=== PATIENT | male | born 1990 | race Caucasian/White ===

== ENCOUNTER → 2020-09-26 16:51 | Outpatient (CLI) | payer BC, SELFPAY ==
[2020-09-26 18:36] LABS: Basophils # 0.1 K/mm3 (0-0.2); Basophils % 0.9 % (0.1-2.0); Eosinophils # 0.2 K/mm3 (0.0-0.4); Eosinophils % 2.2 % (0.1-12.0); Hematocrit 49.4 % (42.0-52.0); Hemoglobin 15.7 g/dL (14.1-18.0); Lymphocytes % 40.7 % (10-50); Mean Corpuscular HGB Conc 31.8 g/dL (31.8-35.4); Mean Corpuscular Hemoglobin 27.5 pg (27.0-31.2); Mean Corpuscular Volume 86.4 fl (80-94); Monocytes # 0.6 K/mm3 (0.1-1.0); Monocytes % 8.2 % (1.7-9.3); Neutrophils # 3.5 K/mm3 (1.8-7.8); Neutrophils % 47.9 % (37.0-80.0); Platelet Count 321 K/mm3 (142-424); Red Blood Count 5.72 M/mm3 (4.60-6.20); Red Cell Distribution Width 12.6 % (11.5-17.5); White Blood Count 7.3 K/mm3 (4.8-10.8)
[2020-09-26 18:38] LABS: Alanine Aminotransferase 43 U/L (12-78); Albumin Level 4.7 g/dl (3.5-5.0); Albumin/Globulin Ratio 1.7 (1.1-1.8); Alkaline Phosphatase 72 U/L (38-126); Anion Gap 13.7 mEq/L (5-15); Aspartate Amino Transferase 32 U/L (17-59); Bilirubin,Total 0.5 mg/dl (0.2-1.3); Blood Urea Nitrogen 11 mg/dl (9-20); Calcium 9.9 mg/dl (8.4-10.2); Carbon Dioxide 27 mmol/L (22.0-30.0); Chloride 105 mmol/L (98-107); Chol/HDL Ratio 3.9 (1-3.5); Cholesterol 148 mg/dl (140-200); Estimated Glomerular Filt Rate 113 ml/min (>60); GFR (African American) 136 ML/MIN (>60); Globulin 2.8 g/dL (1.3-3.2); Glucose 97 mg/dl (74-100); HDL Cholesterol 38 mg/dl (40-60); Potassium 4.7 mmoL/L (3.5-5.1); Sodium 141 mmol/L (136-145); Total Protein,Serum 7.5 g/dl (6.3-8.2); Triglycerides 154 mg/dl (30-150); VLDL Cholesterol 31 mg/dL (0-40)
[2020-09-26 18:50] LABS: Direct LDL Cholesterol 87.83 mg/dL (100-129)
[2020-09-26 18:56] LABS: T4 (Thyroxine) 8.1 ug/dl (5.53-11.0)
[2020-09-26 19:10] LABS: Thyroid Stimulating Hormone 1.38 uIU/mL (0.465-4.68)
== END ==
PROVIDERS: Visit Provider Nurse Practitioner Family
DX: R53.83 Other fatigue (principal); G43.909 Migraine, unspecified, not intractable, without status migrainosus
CPT/HCPCS: 80053; 80061; 84436; 84443; 85025

== ENCOUNTER → 2021-02-17 15:18 | Outpatient (CLI) | payer BC, SELFPAY ==
--- NOTE | 2021-02-17 15:18 | CT_ITS ---
PROCEDURE INFORMATION: Exam: CT Maxillofacial Without Contrast, Sinus Exam date and time: 02/17/2021 3:18 PM Age: 30 years old Clinical indication: Face pain; Patient HX: Deviated nasal septum, polyp in right side of nose; Additional info: Deviated septum/right polyp TECHNIQUE: Imaging protocol: CT Maxillofacial without contrast. Focus on the sinuses. Radiation optimization: All CT scans at this facility use at least one of these dose optimization techniques: automated exposure control; mA and/or kV adjustment per patient size (includes targeted exams where dose is matched to clinical indication); or iterative reconstruction. COMPARISON: No relevant prior studies available. FINDINGS: Frontal sinuses: Normal. No air-fluid levels. Ethmoid air cells: Mild ethmoid sinusitis. Sphenoid sinuses: Normal. No air-fluid levels. Maxillary sinuses: Normal. No air-fluid levels. Ostiomeatal units are patent. Nasal cavity/Septum: Eukd-xm-hfzqo nasal septal deviation. 5 mm right nasal polyp present. Orbital cavity: Orbits are normal. Globes are unremarkable. Bones/joints: There is no evidence of acute fracture. Soft tissues: Unremarkable. IMPRESSION: 1. Mjuu-gg-gkabd nasal septal deviation. 2. 5 mm right nasal polyp present. 3. No evidence of acute fracture. 4. Mild ethmoid sinusitis.
== END ==
PROVIDERS: PCP Nurse Practitioner Family; Visit Provider Otolaryngology
DX: J34.2 Deviated nasal septum (principal); J33.9 Nasal polyp, unspecified
CPT/HCPCS: 70486

== ENCOUNTER → 2021-04-01 13:15 | Outpatient (CLI) | payer BC, SELFPAY ==
--- NOTE | 2021-04-01 13:50 | ECG_ITS ---
APPROVED REPORT Exam: Resting ECG HR:70 bpm ECG Measurements Heart Rate 70 AXES LA 186 P 91 QRSd 86 QRS 26 QT 398 T 21 QTc 429 Conclusion Undetermined rhythm Isolated Q in iii Abnormal ECG Electronically signed by : Zack Cuenca, 04/01/2021 16:47:17
[2021-04-01 13:51] LABS: Basophils # 0.1 K/mm3 (0-0.2); Basophils % 0.9 % (0.1-2.0); Eosinophils # 0.2 K/mm3 (0.0-0.4); Hematocrit 48.4 % (42.0-52.0); Hemoglobin 15.7 g/dL (14.1-18.0); Lymphocytes # 3.3 K/mm3 (0.7-4.5); Lymphocytes % 42.2 % (10-50); Mean Corpuscular HGB Conc 32.4 g/dL (31.8-35.4); Mean Corpuscular Hemoglobin 27.2 pg (27.0-31.2); Mean Corpuscular Volume 84.1 fl (80-94); Mean Platelet Volume 7.1 fl (7.4-10.4); Monocytes # 0.7 K/mm3 (0.1-1.0); Monocytes % 8.2 % (1.7-9.3); Neutrophils # 3.7 K/mm3 (1.8-7.8); Neutrophils % 46.7 % (37.0-80.0); Platelet Count 301 K/mm3 (142-424); Red Blood Count 5.75 M/mm3 (4.60-6.20); Red Cell Distribution Width 12.2 % (11.5-17.5); White Blood Count 7.9 K/mm3 (4.8-10.8)
[2021-04-01 14:29] LABS: Alanine Aminotransferase 44 U/L (12-78); Albumin Level 4.5 g/dl (3.5-5.0); Albumin/Globulin Ratio 1.7 (1.1-1.8); Alkaline Phosphatase 77 U/L (38-126); Anion Gap 15.4 mEq/L (5-15); Aspartate Amino Transferase 27 U/L (17-59); Bilirubin,Total 0.5 mg/dl (0.2-1.3); Blood Urea Nitrogen 13 mg/dl (9-20); Carbon Dioxide 22 mmol/L (22.0-30.0); Chloride 108 mmol/L (98-107); Estimated Glomerular Filt Rate 98 ml/min (>60); GFR (African American) 119 ML/MIN (>60); Globulin 2.7 g/dL (1.3-3.2); Glucose 90 mg/dl (74-100); Potassium 4.4 mmoL/L (3.5-5.1); Sodium 141 mmol/L (136-145); Total Protein,Serum 7.2 g/dl (6.3-8.2)
== END ==
PROVIDERS: Visit Provider Otolaryngology
DX: Z01.812 Encounter for preprocedural laboratory examination (principal); Z11.52 Encounter for screening for COVID-19; J34.2 Deviated nasal septum; J32.2 Chronic ethmoidal sinusitis
CPT/HCPCS: 36415; 80053; 85025; 93005; U0003

== ENCOUNTER 2021-04-03 07:17 | Day surgery (SDC) | payer BC, SELFPAY ==
[2021-04-01 14:08] VITALS: BMI 37.6
[2021-04-03] VITALS (10 sets, daily range): BP systolic 96–148; BP diastolic 56–91; PULSE 70–92; RESP 16–20; TEMP 36.1–36.6; O2SAT 92–99
--- NOTE | 2021-04-03 09:26 | P.PN_ITS ---
[facility] Anesthesia Checklist - Patient Identification Patient Identification: Arm Band - Structural Data Admitted From: Home Planned Operative Procedure/s: Nasal Septoplasty with Removal of Nasal Polyp Consent for Planned Operative Procedure(s) Verified: Yes Verified Documents: Surgical Consent, History and Physical - NPO Status Verified Time NPO: 00:00 - Additional verifications Anesthesia Reactions: No Hx Blood Transfusions: No Blood Transfusion Reaction: No - Airway Assessment C-Spine Mobility Assessed: Yes (mp2) TMJ Mobility Assessed: Yes Dentition: Good Dentition - Neurological Assessment Level of Consciousness: Awake, Alert - Anesthesia Plan Anesthesia Risk discussed: Yes Anesthesia Plan: Verified ASA Class: II Anesthesia Type: General [facility] History I have reviewed the patient's past medical history: Yes Medical History: Reports:: Migraine Denies:: Cancer, Diabetes Mellitus Type 1, Diabetes Mellitus Type 2, Internal Pacemaker, MRSA, Seizures *Have you ever received a pneumonia vaccine?: No *Have you received a flu vaccine this season?: No Other Medical History: Denies: Blood Transfusion Reaction Anesthesia experience/problems:: nac Laterality Cases: Bilateral: Tonsillectomy Other Surgeries: No: Pacemaker Amputation: No Fractures: No - *Social History Last grade of school completed: High school graduate Smoking Status: Never smoker Alcohol Intake: never Substance Use Type: denies use *Occupational Status:: employed Housing: house Household Members: family *Travel in the last 8 weeks: None Family Hx:: No significant family history
--- NOTE | 2021-04-03 10:16 | P.PN_ITS ---
[facility] Anesthesia Record Part I Intake, IV Amount: 1,000 Estimated blood loss (mL): 10 Urine output (mL): 0 Blood Pressure: 138/84 SaO2: 92 Pulse Rate: 88 Respiratory Rate: 16 Temperature: 97 F Patient is:: Drowsy, Stable Stable to PACU at:: 10:15
--- NOTE | 2021-04-03 10:43 | HMH.OPNOTE ---
Date of procedure: 04/03/21 Pre-op Diagnosis:: 1. Deviated nasal septum with 90% nasal airflow blockage 2. Right nasal vestibule polyp 3. Allergic rhinitis with hypertrophied inferior turbinates Post-op Diagnosis:: Same Procedure performed:: 1. Nasal septoplasty 2. Removal of right nasal vestibule polyp 3. Submucous inferior turbinectomies Surgeon:: Viktor Herrera MD [employer] OPERATOR:: Dhaval Garcia Anesthesia: GETA Estimated blood loss (mL): 10 Operative findings:: same Operative note:: With the patient under general anesthesia having been given clindamycin and Decadron, the face was prepped and draped. The eyes were protected with Steri-Strips. The nose was decongested with topical cocaine and 3 cc of 2% lidocaine with epi were injected into the nasal septum and the nasal antral arita. A left hemitransfixion incision was made, and the mucoperichondrium and mucoperiosteum was elevated from both sides of the nasal septum there was a spur of the nasal septum inferiorly to the left and also the quadrangular cartilage was bent to the left anteriorly and to the right posteriorly the quadrangular cartilage was trimmed inferiorly and posteriorly and straightened. The nasal spur was removed in entirety and when that was done the septum could be realigned in the midline and it was held there with transfixion and hemitransfixion chromic sutures after Surgicel snow was placed between the flaps, and all of the bleeding was stopped. The right nasal vestibule polyp was removed with the cup forceps and submitted. Both inferior turbinates were reduced in size by 50%. Bleeding for all the procedure was 10 cc and completely stopped. Bacitracin ointment was placed in the nasal vestibules and a drip pad dressing was applied, the patient was sent to recovery in good general condition. Condition: stable Disposition: PACU Complications:: none
--- NOTE | 2021-04-03 11:04 | HMH.ANESII ---
[facility] Anesthesia Record Part II Discharge Time: 10:44 Destination: Surgical Day Care (OP Surgery) PACU nurse assessment reviewed?: Yes Patient Condition:: Good Anesthesia Complications:: None Swallowing reflex intact?: Yes Cyanosis?: No Blood Pressure: 134/82 Pulse Rate: 82 Temperature: 97.5 F Mental Status: Alert & Oriented Pain level:: 0 Nausea and/or vomitting:: None Intake, IV Amount: 0
== END 2021-04-03 11:00 | disposition home or self-care (01) ==
LOC: OR 07:19
PROVIDERS: PCP Nurse Practitioner Family; Visit Provider Otolaryngology
PROC: (CPT 30520; principal; 2021-04-03 08:45)
DX: J34.2 Deviated nasal septum (principal); J33.8 Other polyp of sinus; G43.909 Migraine, unspecified, not intractable, without status migrainosus
CPT/HCPCS: 30520; 30140; 96374; 96375; J2405; J2710

== ENCOUNTER → 2021-08-19 10:55 | Outpatient (CLI) | payer BC, SELFPAY ==
[2021-08-19 19:37] LABS: Basophils # 0.1 K/mm3 (0-0.2); Basophils % 0.9 % (0.1-2.0); Eosinophils # 0.1 K/mm3 (0.0-0.4); Hematocrit 49.3 % (42.0-52.0); Hemoglobin 16.7 g/dL (14.1-18.0); Lymphocytes % 42.7 % (10-50); Mean Corpuscular HGB Conc 33.8 g/dL (31.8-35.4); Mean Corpuscular Hemoglobin 28.5 pg (27.0-31.2); Mean Corpuscular Volume 84.3 fl (80-94); Mean Platelet Volume 8.6 fl (7.4-10.4); Monocytes # 0.6 K/mm3 (0.1-1.0); Monocytes % 8.6 % (1.7-9.3); Neutrophils # 3.3 K/mm3 (1.8-7.8); Neutrophils % 45.8 % (37.0-80.0); Platelet Count 361 K/mm3 (142-424); Red Blood Count 5.85 M/mm3 (4.60-6.20); Red Cell Distribution Width 13.3 % (11.5-17.5); White Blood Count 7.1 K/mm3 (4.8-10.8)
[2021-08-19 19:38] LABS: Chloride 107 mmol/L (98-107)
[2021-08-19 19:39] LABS: Potassium 4.4 mmoL/L (3.5-5.1); Sodium 140 mmol/L (136-145)
[2021-08-19 19:41] LABS: Alanine Aminotransferase 43 U/L (12-78); Alkaline Phosphatase 75 U/L (38-126); Anion Gap 15.4 mEq/L (5-15); Aspartate Amino Transferase 33 U/L (17-59); Bilirubin,Total 0.3 mg/dl (0.2-1.3); Blood Urea Nitrogen 10 mg/dl (9-20); Carbon Dioxide 22 mmol/L (22.0-30.0); Cholesterol 135 mg/dl (140-200); Estimated Glomerular Filt Rate 98 ml/min (>60); GFR (African American) 118 ML/MIN (>60); Triglycerides 156 mg/dl (30-150); VLDL Cholesterol 31 mg/dL (0-40)
[2021-08-19 19:42] LABS: Albumin Level 4.5 g/dl (3.5-5.0); Albumin/Globulin Ratio 1.7 (1.1-1.8); Calcium 9.1 mg/dl (8.4-10.2); Globulin 2.6 g/dL (1.3-3.2); Glucose 94 mg/dl (74-100); HDL Cholesterol 34 mg/dl (40-60); Total Protein,Serum 7.1 g/dl (6.3-8.2)
[2021-08-19 19:53] LABS: Direct LDL Cholesterol 86.62 mg/dL (100-129)
[2021-08-19 20:11] LABS: T4 (Thyroxine) 7.9 ug/dl (5.53-11.0)
[2021-08-19 20:25] LABS: Thyroid Stimulating Hormone 1.52 uIU/mL (0.465-4.68)
[2021-08-24 16:36] LABS: Testosterone, Total, LC/MS 341.9 ng/dL (264.0-916.0)
== END ==
PROVIDERS: Visit Provider Nurse Practitioner Family
DX: R53.83 Other fatigue (principal); G43.109 Migraine with aura, not intractable, without status migrainosus; E55.9 Vitamin D deficiency, unspecified; Z79.899 Other long term (current) drug therapy
CPT/HCPCS: 80053; 80061; 82306; 84403; 84436; 84443; 85025

== ENCOUNTER → 2021-09-12 14:34 | Outpatient (CLI) | payer BC, SELFPAY | PROVIDERS: PCP Nurse Practitioner Family; Visit Provider Nurse Practitioner Family | DX: G47.33 Obstructive sleep apnea (adult) (pediatric) (principal); R06.83 Snoring | CPT/HCPCS: G0399 ==

== ENCOUNTER → 2021-10-15 14:40 | Outpatient (CLI) | payer BC, SELFPAY | PROVIDERS: PCP Nurse Practitioner Family; Visit Provider Nurse Practitioner Family | DX: E83.10 Disorder of iron metabolism, unspecified (principal); G25.81 Restless legs syndrome | CPT/HCPCS: 82728 ==

== ENCOUNTER → 2022-03-05 16:45 | Outpatient (CLI) | payer BC, SELFPAY ==
--- NOTE | 2022-03-05 16:45 | MR_ITS ---
PROCEDURE INFORMATION: Exam: MR Head Without and With Contrast Exam date and time: 03/05/2022 4:55 PM Age: 31 years old Clinical indication: Pain; Headache; Migraine; Additional info: Migraine. Migraine headaches are getting worse. Dizziness and sensitive to light. 24ml prohance given. TECHNIQUE: Imaging protocol: Magnetic resonance imaging of the head without and with contrast. Contrast material: PROHANCE; Contrast volume: 24 ml; Contrast route: IV; COMPARISON: CT SINUS WO CON 02/17/2021 3:33 PM FINDINGS: Brain: Normal. No acute infarct. No hemorrhage. No significant white matter disease. No edema. Cerebral ventricles: Normal. No ventriculomegaly. Bones/joints: Unremarkable. Paranasal sinuses: Normal as visualized. No acute sinusitis. Mastoid air cells: Normal as visualized. No mastoid effusion. Orbital cavities: Unremarkable. Soft tissues: Unremarkable. IMPRESSION: No acute findings.
== END ==
PROVIDERS: PCP Nurse Practitioner Family; Visit Provider Nurse Practitioner Family
DX: G43.509 Persistent migraine aura without cerebral infarction, not intractable, without status migrainosus (principal)
CPT/HCPCS: 70553; A9576

== ENCOUNTER 2022-04-02 11:20 | Emergency (ER) | payer BC, SELFPAY ==
[2022-04-02 12:39] VITALS: BP 129/71; PULSE 80; RESP 18; TEMP 36.9; O2SAT 98; BMI 37.8
--- NOTE | 2022-04-02 12:51 | HMH.EDUTC ---
[facility] [place] Clinical Impression: Puncture wound Disposition: Home, Self-Care Condition on Discharge: Good Instructions: DI for Puncture Wound, Amoxicillin and Clavulanic Acid Additional Instructions: Clean area well with antibacterial soap and water Take medication as prescribed Watch area for signs of infection including but not limited too drainage, redness and streaks Return if needed Straight to ER if any life threatening symptoms Prescriptions: Amoxicillin/Potassium Clav [Amox-Clav 875-125 mg Tablet] 1 tab PO BID #14 tab Transmission Status: Pending to [id number] Referrals: Donnie Bolanos APRN [Primary Care Provider] - As needed Forms: Work/School Release Medical Decision Making - Navid Inquiry Pt receiving controlled substance: No Navid was queried for this patient: No Vital Signs: 04/02/22 12:39 Temperature 98.5 F Temperature Source Oral Pulse Rate [Radial] 80 Respiratory Rate 18 Blood Pressure [Right Arm] 129/71 Blood Pressure Mean [Right Arm] 90 Blood Pressure Source [Right Arm] Automatic Cuff Blood Pressure Position [Right Arm] Sitting 02 Sat by Pulse Oximetry 98 Oxygen Delivery Method Room Air Orders (Tests/Meds): ED MEDICATIONS Discontinued Medications Generic Name Dose Route Start Last Admin Trade Name Freq PRN Reason Stop Dose Admin Tetanus/Reduced Diphtheria/Acell Pertussis 0.5 ml 04/02/22 12:56 04/02/22 13:05 Tet/Diphth/Pert-Adult 0.5ml Syringe IM 04/02/22 12:57 0.5 ml .ONCE ONE Administration ORDERS Category Date Time Status XR foot LT min 3V Stat Exams 04/02/22 12:56 Taken - Radiology Data #1 Image(s): Foot/Toes Image Reviewed: Yes I reviewed the patient's radiology image No FB noted [facility] [place]PI - General Stated complaint: AO 04/01 nail in foot Time Seen by Provider: 04/02/22 12:51 Mode of Arrival: Ambulatory Source of Information: Patient Limitations: No Limitations Description of Symptoms (Recalled from Triage Doc. by RN): STEPPED ON NAIL LAST NIGHT HEENT Symptoms (Recalled from RN notes): No Resp Symptoms (Recalled from RN notes): No Skin Symptoms (Recalled from RN notes): Yes MS Symptoms (Recalled from RN notes): No Functional Status (Recalled from RN notes): N/A - History of Present Illness Provider Complaint: Patient states that he was demolishing a room and he stepped on nail that went through his shoe into the bottom of his left foot State that he has been having pain and soreness to the bottom of the foot State that he cleaned it well but unsure when his last tetanus was - Related Data Previous Rx's Medication Instructions Recorded sildenafil 100 mg tablet 100 mg PO DAILY PRN #30 tab 08/25/21 hydroxyzine pamoate 25 mg capsule 25 mg PO TID PRN #60 cap 11/13/21 omeprazole 20 mg capsule,delayed 20 mg PO DAILY #30 cap 01/21/22 release sumatriptan succinate 50 mg tablet 50 mg PO Q2H PRN #14 tab 02/20/22 topiramate 50 mg tablet 50 mg PO BID 30 Days #60 tab 02/20/22 escitalopram oxalate 10 mg tablet 10 mg PO DAILY #90 tab 03/09/22 Amoxicillin/Potassium Clav 1 tab PO BID #14 tab 04/02/22 [Amox-Clav 875-125 mg Tablet] Allergies Allergy/AdvReac Type Severity Reaction Status Date / Time No Known Allergies Allergy Verified 02/20/22 16:04 - Worker's Comp Is this a Worker's Comp case?: No [facility] History - Hepatitis A Screen Attestation statement:: This patient has been screened for Hepatitis A risk factors. I have reviewed the patient's past medical history: Yes Medical History: Reports:: Gastroesophageal Reflux Disease(GERD), Kidney Stones, Migraine Denies:: Cancer, Diabetes Mellitus Type 1, Diabetes Mellitus Type 2, Internal Pacemaker, MRSA, Seizures Other Medical History: Reports: Other. Denies: Blood Transfusion Reaction Laterality Cases: Bilateral: Tonsillectomy Other Surgeries: Yes: Other (Deviated septum repair 02/2021). No: Pacemaker Amputation: No Fractures: No Comment: Nick
--- NOTE | 2022-04-02 12:56 | XR_ITS ---
FINAL REPORT CLINICAL HISTORY: TO MAKE SURE THERE ARE NO REMAINING PIECES OF NAIL, PT STEPPED ON NAIL YESTERDAY, ENTRY POINT AT BALL OF FOOT AT HEAD OF METATARSALS. FINDINGS: AP, lateral and oblique views of the left foot were obtained. There is no acute fracture or dislocation. The joint spaces are intact. There is no soft tissue abnormality. No radiopaque foreign body is identified. IMPRESSION: No acute fracture or radiopaque foreign body identified. Reviewed, Interpreted and Dictated by Carmen Borja MD Transcribed by Monica Navas Authenticated and [facility]
[2022-04-02 13:19] VITALS: BP 129/71; PULSE 80; RESP 18; TEMP 36.9; O2SAT 98
== END 2022-04-02 13:21 | disposition home or self-care (01) ==
PROVIDERS: Emergency Provider Nurse Practitioner; PCP Nurse Practitioner Family
DX: S91.332A Puncture wound without foreign body, left foot, initial encounter (principal); W22.8XXA Striking against or struck by other objects, initial encounter; Z23 Encounter for immunization
CPT/HCPCS: 73630; 90471; 90715; 99213; G0463

== ENCOUNTER 2022-07-25 12:35 | Emergency (ER) | payer BC, SELFPAY ==
[2022-07-25 13:54] VITALS: BP 145/84; PULSE 82; RESP 16; TEMP 36.9; O2SAT 98; BMI 37.6
[2022-07-25 14:05] LABS: UTC Strep Screen (Rapid) Negative (Negative)
[2022-07-25 14:06] LABS: UTC Influenza A Antigen Negative (Negative); UTC Influenza B Antigen Negative (Negative)
--- NOTE | 2022-07-25 14:07 | EXP.UTC ---
Discharge Plan Disposition Patient Disposition: Home, Self-Care Condition: Good Prescriptions Prescriptions: New mctejclxmzwtqkx-wuuwifxju-UK [Bromfed DM] 2-30-10 mg/5 mL Syrup 5 ml PO Q6H PRN (Reason: Cough) Qty: 240 0RF ondansetron 4 mg Tablet,Disintegrating 4 mg PO Q8H PRN (Reason: Nausea) Qty: 20 0RF No Action sildenafil 100 mg tablet 100 mg PO DAILY PRN (Reason: sexual activity) Qty: 30 0RF Rx Instructions: administer 30 minutes to 4 hours before activity omeprazole 20 mg capsule,delayed release(DR/EC) 20 mg PO DAILY Qty: 30 2RF sumatriptan succinate 50 mg tablet 50 mg PO Q2H PRN (Reason: migraine headache) Qty: 14 2RF Rx Instructions: do not exceed 4 doses per 24 hrs topiramate 50 mg tablet 50 mg PO BID 30 Days Qty: 60 3RF hydroxyzine pamoate [Vistaril] 25 mg capsule 25 mg PO TID PRN (Reason: itching) Qty: 60 0RF Vraylar 1.5 mg capsule 1.5 mg PO DAILY Qty: 30 2RF Rx Instructions: Has failed MX SSRI's/SNRI's Referrals Follow up/Referrals: Donnie Bolanos APRN [Primary Care Provider] - See instructions Activity Restrictions/Add. Instructions Additional Instructions/Restrictions: Drink plenty of fluids. Take tylenol or ibuprofen for pain or fever. Take the medications as directed. Follow up with your regular doctor. GO TO THE ER FOR ANY WORSENING SYMPTOMS Clinical Impressions Clinical Impression: Viral syndrome Stand Alone Forms Stand Alone Forms: Work/School Release Instructions Patient Instructions: DI for Influenza -- Adult, DI for Viral Syndrome [place] [facility] [place] General Stated complaint: light headed,fever, cough Mode of Arrival: Ambulatory Source of Information: Patient Limitations: No Limitations Time Seen by Provider: 07/25/22 14:06 Description of Symptoms (Recalled from Triage Doc. by RN): pt comes in with c/o fever, weakness, body aches, cough, headache, congestion, nasal drainage. symptoms began this am. HEENT Symptoms (Recalled from RN notes): Yes Resp Symptoms (Recalled from RN notes): Yes Skin Symptoms (Recalled from RN notes): No MS Symptoms (Recalled from RN notes): No Functional Status (Recalled from RN notes): n/a History of Present Illness Provider Complaint: He states that since yesterday he has had a head ache, chills, body aches, and a low grade fever. He states that he feels like he has when he had the flu in the past. He denies any shortness of breath. Related Data Previous Rx's Medication Instructions Recorded sildenafil 100 mg tablet 100 mg PO DAILY PRN sexual 08/25/21 activity #30 tabs hydroxyzine pamoate 25 mg capsule 25 mg PO TID PRN itching #60 caps 11/13/21 (Vistaril) omeprazole 20 mg capsule,delayed 20 mg PO DAILY #30 caps 01/21/22 release sumatriptan succinate 50 mg tablet 50 mg PO Q2H PRN migraine headache 02/20/22 #14 tabs topiramate 50 mg tablet 50 mg PO BID migraines 30 days #60 02/20/22 tabs cariprazine 1.5 mg capsule 1.5 mg PO DAILY #30 caps 07/17/22 (Vraylar) kqypnpkbljfdxbi-mrxsmbcyemwmvrp-KE 5 ml PO Q6H PRN Cough #240 mL 07/25/22 2 mg-30 mg-10 mg/5 mL oral syrup (Bromfed DM) ondansetron 4 mg disintegrating 4 mg PO Q8H PRN Nausea #20 tabs 07/25/22 tablet Allergies Allergy/AdvReac Type Severity Reaction Status Date / Time No Known Allergies Allergy Verified 07/25/22 13:56 Worker's Comp Is this a Worker's Comp case?: No PFSH PFS Medical History GERD (gastroesophageal reflux disease) Kidney stones Migraine aura, persistent, intractable, with status migrainosus Surgical History History of tonsillectomy Social History Smoking Status: Never smoker second hand exposure: No alcohol intake: never substance use type: denies use current occupational status: emp
[2022-07-25 14:41] VITALS: BP 145/84; PULSE 82; RESP 16; TEMP 36.9
[2022-07-25 14:53] LABS: Adenovirus,PCR Not Detected (NotDetected); Bordetella Pertussis Not Detected (NotDetected); Chlamydophila Pneumoniae, PCR Not Detected (NotDetected); Coronavirus 19, PCR Not Detected (NotDetected); Coronavirus 229E Not Detected (NotDetected); Coronavirus NL63 Not Detected (NotDetected); Coronavirus OC43 Not Detected (NotDetected); Coronovirus HKU1,PCR Not Detected (NotDetected); Human Metapneumovirus Not Detected (NotDetected); Influenza A, PCR Not Detected (NotDetected); Influenza AH1, 2009 Not Detected (NotDetected); Influenza AH1, PCR Not Detected (NotDetected); Influenza B, PCR Not Detected (NotDetected); Mycoplasma Pneumoniae, PCR Not Detected (NotDetected); Parainfluenza 1, PCR Not Detected (NotDetected); Parainfluenza 2, PCR Not Detected (NotDetected); Parainfluenza 3, PCR Not Detected (NotDetected); Parainfluenza 4, PCR Not Detected (NotDetected); Respiratory Syncytial Virus Not Detected (NotDetected); Rhinovirus/Enterovirus Not Detected (NotDetected)
[2022-07-26 02:27] LABS: Influenza AH3,PCR Detected (NotDetected)
== END 2022-07-25 14:52 | disposition home or self-care (01) ==
PROVIDERS: Emergency Provider Nurse Practitioner Family; PCP Nurse Practitioner Family
DX: J10.1 Influenza due to other identified influenza virus with other respiratory manifestations (principal)
CPT/HCPCS: 87581; 87632; 87798; 87804; 87880; 99212; C9803; G0463; U0003; U0005

== ENCOUNTER 2022-08-17 08:47 | Emergency (ER) | payer BC, SELFPAY ==
--- NOTE | 2022-08-17 09:40 | EXP.UTC ---
Discharge Plan Disposition Patient Disposition: Home, Self-Care Condition: Good Prescriptions Prescriptions: New azithromycin [Zithromax] 250 mg tablet 250 mg PO UD DOSE PK Qty: 6 0RF Rx Instructions: Take two (2) tablets today, then one (1) tablet days #2 thru #5 oseltamivir [Tamiflu] 75 mg capsule 75 mg PO BID Qty: 10 0RF ctufphlfqzzregv-paeqkcjmj-DS [Bromfed DM] 2-30-10 mg/5 mL Syrup 5 ml PO Q6H PRN (Reason: Cough) Qty: 240 0RF No Action sildenafil 100 mg tablet 100 mg PO DAILY PRN (Reason: sexual activity) Qty: 30 0RF Rx Instructions: administer 30 minutes to 4 hours before activity omeprazole 20 mg capsule,delayed release(DR/EC) 20 mg PO DAILY Qty: 30 2RF sumatriptan succinate 50 mg tablet 50 mg PO Q2H PRN (Reason: migraine headache) Qty: 14 2RF Rx Instructions: do not exceed 4 doses per 24 hrs topiramate 50 mg tablet 50 mg PO BID 30 Days Qty: 60 3RF hydroxyzine pamoate [Vistaril] 25 mg capsule 25 mg PO TID PRN (Reason: itching) Qty: 60 0RF Vraylar 1.5 mg capsule 1.5 mg PO DAILY Qty: 30 2RF Rx Instructions: Has failed MX SSRI's/SNRI's daqjfkkfbfcdtvz-cleghcukb-WZ [Bromfed DM] 2-30-10 mg/5 mL Syrup 5 ml PO Q6H PRN (Reason: Cough) Qty: 240 0RF ondansetron 4 mg Tablet,Disintegrating 4 mg PO Q8H PRN (Reason: Nausea) Qty: 20 0RF Referrals Follow up/Referrals: Donnie Bolanos APRN [Primary Care Provider] - See instructions Activity Restrictions/Add. Instructions Additional Instructions/Restrictions: Drink plenty of fluids. Take tylenol or ibuprofen for pain or fever. Take the medications as directed. Follow up with your regular doctor. GO TO THE ER FOR ANY WORSENING SYMPTOMS Clinical Impressions Clinical Impression: Influenza Stand Alone Forms Stand Alone Forms: Work/School Release Instructions Patient Instructions: DI for Influenza -- Adult, Oseltamivir Discharge ED Provider: Kumar Kennedy [facility] HPI General Stated complaint: congestion,runny nose,achey,sinus pressure Time Seen by Provider: 08/17/22 09:40 History of Present Illness Provider Complaint: He states that for the past 2 days he has had sinus congestion, fever, body aches and malaise. Related Data Previous Rx's Medication Instructions Recorded sildenafil 100 mg tablet 100 mg PO DAILY PRN sexual 08/25/21 activity #30 tabs hydroxyzine pamoate 25 mg capsule 25 mg PO TID PRN itching #60 caps 11/13/21 (Vistaril) omeprazole 20 mg capsule,delayed 20 mg PO DAILY #30 caps 01/21/22 release sumatriptan succinate 50 mg tablet 50 mg PO Q2H PRN migraine headache 02/20/22 #14 tabs topiramate 50 mg tablet 50 mg PO BID migraines 30 days #60 02/20/22 tabs cariprazine 1.5 mg capsule 1.5 mg PO DAILY #30 caps 07/17/22 (Vraylar) ynfgfxferwhfqbz-gydoiwmaoprmier-JI 5 ml PO Q6H PRN Cough #240 mL 07/25/22 2 mg-30 mg-10 mg/5 mL oral syrup (Bromfed DM) ondansetron 4 mg disintegrating 4 mg PO Q8H PRN Nausea #20 tabs 07/25/22 tablet azithromycin 250 mg tablet 250 mg PO UD DOSE PK #6 tabs 08/17/22 (Zithromax) cixhkiimcohnpbo-jmopqjeusdrugcf-GK 5 ml PO Q6H PRN Cough #240 mL 08/17/22 2 mg-30 mg-10 mg/5 mL oral syrup (Bromfed DM) oseltamivir 75 mg capsule (Tamiflu) 75 mg PO BID #10 caps 08/17/22 Allergies Allergy/AdvReac Type Severity Reaction Status Date / Time No Known Allergies Allergy Verified 08/17/22 09:49 [facility] Disclaimer: The information contained in this section may have been updated after the patient was seen, as this information can be updated by other users. Medical History GERD (gastroesophageal reflux disease) Kidney stones Migraine aura, persistent, intractable, with status migrainosus Surgical History History of tonsillectomy Social History Smoking Status
[2022-08-17 09:44] VITALS: BP 142/87; PULSE 90; RESP 16; TEMP 37; O2SAT 100; BMI 39.1
[2022-08-17 09:55] LABS: Coronavirus 19, PCR Not Detected (NotDetected); Influenza A, PCR Not Detected (NotDetected); Influenza B, PCR Not Detected (NotDetected)
[2022-08-17 09:56] LABS: UTC Strep Screen (Rapid) Negative (Negative)
[2022-08-17 10:18] VITALS: BP 142/87; PULSE 90; RESP 16; TEMP 37
== END 2022-08-17 10:23 | disposition home or self-care (01) ==
PROVIDERS: Emergency Provider Nurse Practitioner Family; PCP Nurse Practitioner Family
DX: J10.1 Influenza due to other identified influenza virus with other respiratory manifestations (principal)
CPT/HCPCS: 87880; 99212; C9803; G0463; U0003; U0005

== ENCOUNTER 2022-08-18 08:29 | Emergency (ER) | payer BC, SELFPAY ==
[2022-08-18 09:29] VITALS: BP 130/83; PULSE 74; RESP 16; TEMP 36.9; O2SAT 97; BMI 29.4
--- NOTE | 2022-08-18 09:52 | EXP.UTC ---
Discharge Plan Disposition Patient Disposition: Home, Self-Care Condition: Good Prescriptions Prescriptions: No Action sildenafil 100 mg tablet 100 mg PO DAILY PRN (Reason: sexual activity) Qty: 30 0RF Rx Instructions: administer 30 minutes to 4 hours before activity omeprazole 20 mg capsule,delayed release(DR/EC) 20 mg PO DAILY Qty: 30 2RF sumatriptan succinate 50 mg tablet 50 mg PO Q2H PRN (Reason: migraine headache) Qty: 14 2RF Rx Instructions: do not exceed 4 doses per 24 hrs topiramate 50 mg tablet 50 mg PO BID 30 Days Qty: 60 3RF hydroxyzine pamoate [Vistaril] 25 mg capsule 25 mg PO TID PRN (Reason: itching) Qty: 60 0RF Vraylar 1.5 mg capsule 1.5 mg PO DAILY Qty: 30 2RF Rx Instructions: Has failed MX SSRI's/SNRI's qvousrwqnqnvjsl-vvwscvbjg-YL [Bromfed DM] 2-30-10 mg/5 mL Syrup 5 ml PO Q6H PRN (Reason: Cough) Qty: 240 0RF ondansetron 4 mg Tablet,Disintegrating 4 mg PO Q8H PRN (Reason: Nausea) Qty: 20 0RF azithromycin [Zithromax] 250 mg tablet 250 mg PO UD DOSE PK Qty: 6 0RF Rx Instructions: Take two (2) tablets today, then one (1) tablet days #2 thru #5 oseltamivir [Tamiflu] 75 mg capsule 75 mg PO BID Qty: 10 0RF betfdvvrseufyxx-gkhfoxiih-TU [Bromfed DM] 2-30-10 mg/5 mL Syrup 5 ml PO Q6H PRN (Reason: Cough) Qty: 240 0RF Referrals Follow up/Referrals: Donnie Bolanos APRN [Primary Care Provider] - See instructions Clinical Impressions Clinical Impression: Wax in ear, Impacted cerumen of right ear Instructions Patient Instructions: Cerumen Impaction [facility] [facility] [place] General Stated complaint: Right ear pain Mode of Arrival: Ambulatory Source of Information: Patient Limitations: No Limitations Time Seen by Provider: 08/18/22 09:52 Description of Symptoms (Recalled from Triage Doc. by RN): pt comes in with c/o right ear pain, head and jaw pain. smyptoms ongoing for two weeks. pt seen in [facility] yesterday tests were negative HEENT Symptoms (Recalled from RN notes): Yes Resp Symptoms (Recalled from RN notes): No Skin Symptoms (Recalled from RN notes): No MS Symptoms (Recalled from RN notes): Yes Functional Status (Recalled from RN notes): n/a History of Present Illness Provider Complaint: 32 yr old male c/o right ear pain, head and jaw pain for 2 weeks. pt seen in [facility] yesterday tests were negative Related Data Previous Rx's Medication Instructions Recorded sildenafil 100 mg tablet 100 mg PO DAILY PRN sexual 08/25/21 activity #30 tabs hydroxyzine pamoate 25 mg capsule 25 mg PO TID PRN itching #60 caps 11/13/21 (Vistaril) omeprazole 20 mg capsule,delayed 20 mg PO DAILY #30 caps 01/21/22 release sumatriptan succinate 50 mg tablet 50 mg PO Q2H PRN migraine headache 02/20/22 #14 tabs topiramate 50 mg tablet 50 mg PO BID migraines 30 days #60 02/20/22 tabs cariprazine 1.5 mg capsule 1.5 mg PO DAILY #30 caps 07/17/22 (Vraylar) lzdzpcnyzwahgti-vxcrsnfdjgdqcqm-CA 5 ml PO Q6H PRN Cough #240 mL 07/25/22 2 mg-30 mg-10 mg/5 mL oral syrup (Bromfed DM) ondansetron 4 mg disintegrating 4 mg PO Q8H PRN Nausea #20 tabs 07/25/22 tablet azithromycin 250 mg tablet 250 mg PO UD DOSE PK #6 tabs 08/17/22 (Zithromax) hsxjoplkdxnwfbs-kmszgqtogcpwkxf-VH 5 ml PO Q6H PRN Cough #240 mL 08/17/22 2 mg-30 mg-10 mg/5 mL oral syrup (Bromfed DM) oseltamivir 75 mg capsule (Tamiflu) 75 mg PO BID #10 caps 08/17/22 Allergies Allergy/AdvReac Type Severity Reaction Status Date / Time No Known Allergies Allergy Verified 08/18/22 09:34 Worker's Comp Is this a Worker's Comp case?: No [facility] Disclaimer: The information contained in this section may have been updated after the patient was seen, as this information can be updated by other users. Medical History , SPECIALTY PERSON) GERD (gastroesophageal reflux disease) Kidney stones Migraine aura, p
[2022-08-18 10:00] VITALS: BP 130/83; PULSE 74; RESP 16; TEMP 36.9
== END 2022-08-18 10:04 | disposition home or self-care (01) ==
PROVIDERS: Emergency Provider Nurse Practitioner Family; PCP Nurse Practitioner Family
DX: H61.21 Impacted cerumen, right ear (principal)
CPT/HCPCS: 99212; G0463

== ENCOUNTER 2022-08-19 17:04 | Emergency (ER) | payer BC, SELFPAY ==
[2022-08-19 18:31] VITALS: BP 140/84; PULSE 86; RESP 18; TEMP 36.8; O2SAT 100; BMI 39.1
--- NOTE | 2022-08-19 18:40 | EXP.UTC ---
Discharge Plan Disposition Patient Disposition: Home, Self-Care Condition: Good Prescriptions Prescriptions: New methylprednisolone 4 mg Tablets,Dose Pack 4 mg PO DIRECTED Qty: 21 0RF amoxicillin-pot clavulanate 875-125 mg Tablet 1 tab PO Q12H Qty: 20 0RF ofloxacin 0.3 % drops 10 drp otic (ear) DAILY 7 Days Qty: 5 0RF No Action sildenafil 100 mg tablet 100 mg PO DAILY PRN (Reason: sexual activity) Qty: 30 0RF Rx Instructions: administer 30 minutes to 4 hours before activity omeprazole 20 mg capsule,delayed release(DR/EC) 20 mg PO DAILY Qty: 30 2RF sumatriptan succinate 50 mg tablet 50 mg PO Q2H PRN (Reason: migraine headache) Qty: 14 2RF Rx Instructions: do not exceed 4 doses per 24 hrs topiramate 50 mg tablet 50 mg PO BID 30 Days Qty: 60 3RF hydroxyzine pamoate [Vistaril] 25 mg capsule 25 mg PO TID PRN (Reason: itching) Qty: 60 0RF Vraylar 1.5 mg capsule 1.5 mg PO DAILY Qty: 30 2RF Rx Instructions: Has failed MX SSRI's/SNRI's ozlkdpedghdjoof-syodtdujt-OE [Bromfed DM] 2-30-10 mg/5 mL Syrup 5 ml PO Q6H PRN (Reason: Cough) Qty: 240 0RF ondansetron 4 mg Tablet,Disintegrating 4 mg PO Q8H PRN (Reason: Nausea) Qty: 20 0RF azithromycin [Zithromax] 250 mg tablet 250 mg PO UD DOSE PK Qty: 6 0RF Rx Instructions: Take two (2) tablets today, then one (1) tablet days #2 thru #5 oseltamivir [Tamiflu] 75 mg capsule 75 mg PO BID Qty: 10 0RF jfzxnojwysqrcqw-rfgjxbkai-YY [Bromfed DM] 2-30-10 mg/5 mL Syrup 5 ml PO Q6H PRN (Reason: Cough) Qty: 240 0RF Referrals Follow up/Referrals: Donnie Bolanos APRN [Primary Care Provider] - See instructions Activity Restrictions/Add. Instructions Additional Instructions/Restrictions: Drink plenty of fluids. Take tylenol or ibuprofen for pain or fever. Take the medications as directed. Follow up with your regular doctor. GO TO THE ER FOR ANY WORSENING SYMPTOMS Clinical Impressions Clinical Impression: Infection of right ear Instructions Patient Instructions: Middle Ear Infection, How to Use Ear Drops Discharge ED Provider: Kumar Kennedy [facility] General Stated complaint: right ear Mode of Arrival: Ambulatory Source of Information: Patient Limitations: No Limitations Time Seen by Provider: 08/19/22 18:40 HEENT Symptoms (Recalled from RN notes): Yes Resp Symptoms (Recalled from RN notes): No Skin Symptoms (Recalled from RN notes): No MS Symptoms (Recalled from RN notes): No Functional Status (Recalled from RN notes): n/a History of Present Illness Provider Complaint: pt comes in with c/o right ear pain after getting it cleaned out yesterday Related Data Previous Rx's Medication Instructions Recorded sildenafil 100 mg tablet 100 mg PO DAILY PRN sexual 08/25/21 activity #30 tabs hydroxyzine pamoate 25 mg capsule 25 mg PO TID PRN itching #60 caps 11/13/21 (Vistaril) omeprazole 20 mg capsule,delayed 20 mg PO DAILY #30 caps 01/21/22 release sumatriptan succinate 50 mg tablet 50 mg PO Q2H PRN migraine headache 02/20/22 #14 tabs topiramate 50 mg tablet 50 mg PO BID migraines 30 days #60 02/20/22 tabs cariprazine 1.5 mg capsule 1.5 mg PO DAILY #30 caps 07/17/22 (Vraylar) phikurtlmfmdqup-wzqltexudikqveb-XQ 5 ml PO Q6H PRN Cough #240 mL 07/25/22 2 mg-30 mg-10 mg/5 mL oral syrup (Bromfed DM) ondansetron 4 mg disintegrating 4 mg PO Q8H PRN Nausea #20 tabs 07/25/22 tablet azithromycin 250 mg tablet 250 mg PO UD DOSE PK #6 tabs 08/17/22 (Zithromax) wvxvecsecxnmvgm-pbvfgpmtrhedkmk-YV 5 ml PO Q6H PRN Cough #240 mL 08/17/22 2 mg-30 mg-10 mg/5 mL oral syrup (Bromfed DM) oseltamivir 75 mg capsule (Tamiflu) 75 mg PO BID #10 caps 08/17/22 amoxicillin 875 mg-potassium 1 tab PO Q12H #20 tabs 08/19/22 clavulanate 125 mg tablet methylprednisolone 4 mg tablets in 4 mg PO DIRECTED #21 tabs 08/19/22 a dose pack ofloxacin 0.3 % ear drops 10 drp otic (ear
[2022-08-19 18:54] VITALS: BP 140/84; PULSE 86; RESP 18; TEMP 36.8
== END 2022-08-19 19:06 | disposition home or self-care (01) ==
PROVIDERS: Emergency Provider Nurse Practitioner Family; PCP Nurse Practitioner Family
DX: H66.91 Otitis media, unspecified, right ear (principal)
CPT/HCPCS: 99212; G0463

== ENCOUNTER 2023-06-01 08:05 | Emergency (ER) | payer BC, SELFPAY ==
[2023-06-01 08:15] VITALS: BP 142/91; PULSE 66; RESP 22; TEMP 36.9; O2SAT 97; BMI 39.1
--- NOTE | 2023-06-01 08:18 | XR_ITS ---
FINAL REPORT CLINICAL HISTORY: pain FINDINGS: AP, oblique and lateral views of the right foot were obtained. There is no prior exam for comparison. There is no acute fracture or dislocation. The joint spaces are preserved. Soft tissues are normal. IMPRESSION: No acute osseous abnormality of the right foot. Reviewed, Interpreted and Dictated by Carmen Borja MD Transcribed by Chris Rome Authenticated and [facility]
--- NOTE | 2023-06-01 08:27 | EXP.UTC ---
Discharge Plan Disposition Patient Disposition: Home, Self-Care Condition: Good Prescriptions Prescriptions: No Action No Known Home Medications Referrals Follow up/Referrals: Fly Chopra DPM [Physician] - See instructions Donnie Bolanos APRN [Primary Care Provider] - See instructions Gabriella William APRN [Nurse Practitioner] - See instructions Activity Restrictions/Add. Instructions Additional Instructions/Restrictions: *weight bearing as tolerated *RICE, Rest the extremity, Ice 15-20 minutes 3-4 times daily, Compress- wear the twin wrap as discussed as much as possible to help reduce swelling and pain, Elevate the extremity when at rest *Twin wrap is for support and help control swelling, use it except in the shower. Be sure that is not to tight but not to loose either *Elevate when resting? *Ibuprofen 600-800mg every 6-8 hours as needed for pain an inflammation. If need something more can take Tylenol in between doses of Ibuprofen to help Immediately follow up with your family doctor for new or worsening of symptoms, or no noticeable improvement over the next 3-5 days Clinical Impressions Clinical Impression: Foot pain Qualifiers: Laterality: right Qualified Code(s): M79.671 - Pain in right foot Instructions Patient Instructions: DI for Foot Pain Discharge ED Provider: Susy Hubbard [facility] General Stated complaint: right heel pain, unknown origin Mode of Arrival: Ambulatory Source of Information: Patient Limitations: No Limitations Time Seen by Provider: 06/01/23 08:28 Description of Symptoms (Recalled from Triage Doc. by RN): PATIENT C/O PAIN TO RIGHT HEEL AREA, NO KNOWN INJURY. HE REPORTS PAIN STARTED APPROX 1 YEAR AGO AND HAS GOTTEN PROGRESSIVELY WORSE HEENT Symptoms (Recalled from RN notes): No Resp Symptoms (Recalled from RN notes): No Skin Symptoms (Recalled from RN notes): No MS Symptoms (Recalled from RN notes): Yes Functional Status (Recalled from RN notes): WNL History of Present Illness Provider Complaint: Patient states that he was having pain in heel area about a year ago Denies known injury States that it has continued to get worse and hurts when he puts weight on his heel States that he hasnt done anything to hurt it but since it was getting worse he came in to get it checked out Related Data Home Medications Medication Instructions Recorded Confirmed No Known Home Medications 06/01/23 06/01/23 Allergies Allergy/AdvReac Type Severity Reaction Status Date / Time No Known Allergies Allergy Verified 09/02/22 14:59 Worker's Comp Is this a Worker's Comp case?: No [facility] Disclaimer: The information contained in this section may have been updated after the patient was seen, as this information can be updated by other users. 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
[2023-06-01 08:54] VITALS: BP 142/91; PULSE 66; RESP 22; TEMP 36.9; O2SAT 97
== END 2023-06-01 09:58 | disposition home or self-care (01) ==
PROVIDERS: Emergency Provider Nurse Practitioner; PCP Nurse Practitioner Family
DX: M79.671 Pain in right foot (principal); K21.9 Gastro-esophageal reflux disease without esophagitis
CPT/HCPCS: 73630; 99212; 99214; G0463

== ENCOUNTER 2023-07-16 17:00 | Outpatient (RCR) | payer BC, SELFPAY ==
--- NOTE | 2023-06-23 10:32 | HMH.PTOPEV ---
PT Outpatient Evaluation Rehab PT Outpatient Evaluation Start: 06/23/23 09:14 Freq: Status: Active Protocol: Document 06/23/23 09:14 PRITESH (Rec: 06/23/23 09:37 PRITESH [id number]) E-signed By Antoine Stock, PT Outpatient Therapy Subjective History Subjective History Patient is a 32 year old male presenting to outpatient PT with reports R foot pain starting approx 1 year ago of insidious onset. Most recent imaging negative for any bony abmormality. Patient has previously tried Powerstep arch supports that did not provide any relief. Patient currently uses a Strausberg sock at night to promote DF. Comorbidities include hx of migraines, kidney stones x 2, deviated septum and solano splints. New diagnosis of cancer in past 12 No months? Chief Complaint Pain,Stiff Symptom Type Sharp,Stabbing Symptoms Relieved By Rest/Positioning,Ice Symptoms Aggravated By Standing,Physical Activity, Walking Prior Functional Limitations None Current Functional Limitations Housework,Standing,Recreation Activity,Walking,Stairs Symptom Description Intermittent Level of pain today (0-10) 4 Pain scale - at its best (0-10) 0 Pain scale - at its worst (0-10) 9 Ankle/Foot Eval Gait Observation General Gait Pattern Observation Antalgic Gait,Decrease Weight Bear (R) Palpation Tenderness right Ankle/Foot Palpation Findings Tenderness Ankle/Foot Palpation Overall Comment R calcaneal tubercle 3/4 ROM Ankle/Foot Dorsiflexion w/Knee Extended 3 Active Range Motion (degrees) Ankle/Foot Plantar Flexion Active Range WNL of Motion (degrees) Ankle/Foot Eversion Active Range of WNL Motion (degrees) Ankle/Foot Inversion Active Range of WNL Motion (degrees) Ankle/Foot ROM Limitations Soft Tissue Tightness Great Toe ROM Reason Not Measured Within Functional Limits MMT Ankle Dorsiflexion Strength Grade 5 Normal Ankle Plantarflexion Strength Grade 5 Normal Foot Eversion Strength Grade 5 Normal Foot Inversion Strength Grade 5 Normal Special Tests Ankle Anterior Drawer Test Negative Right Ankle Eversion Test Negative Right Talar Tilt Test Negative Right Ankle Posterior Drawer Test Negative Right Foot Interdigital Neuroma Test Negative Right Neuro tests normal sensation to monofilament Yes Lower Extremity Functional Index Activities Today, do you or would you have any difficulty at all with: a.Any of your usual work, housework or A little bit of difficulty school activities b. Your usual hobbies, recreational or Moderate difficulty sporting activities c. Getting into or out of the bath No difficulty d. Walking between rooms A little bit of difficulty e. Putting on your shoes or socks No difficulty f. Squatting A little bit of difficulty g. Lifting an object, like a bag of A little bit of difficulty groceries from the floor h. Performing light activities around Moderate difficulty your home i. Performing heavy activities around Moderate difficulty your home j. Getting into or out of a car No difficulty k. Walking 2 blocks A little bit of difficulty l. Walking a mile A little bit of difficulty m. Going up or down 10 stairs (about 1 A little bit of difficulty flight of stairs) n. Standing for 1 hour A little bit of difficulty o. Sitting for 1 hour No difficulty p. Running on even ground Quite a bit of difficulty q. Running on uneven ground Quite a bit of difficulty r. Making sharp turns while running fast A little bit of difficulty s. Hopping A little bit of difficulty t. Rolling over in bed No difficulty LEFI Score Lower Extremity Functional Index Score 58 Outpatient Therapy Assessment Impairments Problems/Impairmments Palpation Tenderness,Impaired Range of Motion,Impaired Walking,Impaired Standing, Impaired Household Care, Impaired Stair Climbing, Impaired Incline Stepping, Impaired Stepping on Uneven Surface,Impaired Squatting, Impaired Recreational Activities,Impaired Running, Impaired Jumping,Impaired Work Activities,Subjective C/O Pain Prognosis Rehab Potential Good Clinical Impression Consistent with Diagnosis Yes Short Term Goals Number of Weeks 2 Decrease Subjective C/O Pain Yes: 5/10 at worst Patient to be Ind w/ HEP Yes [facility] Goals Number of Weeks 4-6 Decreased Palpation Tenderness Yes: 1/4 Increase Range of Motion Yes: WNL Increase Strength Yes: 5/5 Increase Ability to Walk Yes: 1 hr without difficulty Increase Ability to Stand Yes: Improve Ability For Household Care Yes Improve Ability to Climb Stairs Yes: 1 flight up/down without difficulty Improve Tolerance to Work Activities Yes Decrease Subjective C/O Pain Yes: 2/10 at worst Outpatient Therapy Plan of Care Treatment Plan May Include Therapeutic Exercise Including Home Yes Exercise Program Manual Therapy Techniques Yes Neuromuscular Re-education Yes Therapeutic Activities to Return to Yes Previous Functional/Work Level Gait Training Yes ADL/Self Care Education Yes Dry Needling Yes Thermal Modalities Yes Electrical Stimulation Yes Ultrasound/Phonophoresis Yes Iontophoresis Yes Orthotics/Bracing/Splinting Yes Vasopneumatic Compression Pump Yes Massage Yes Eval/Re-Eval Yes Frequency Times per week 2 Duration Number of Weeks 4-6 Addendums This patient is a candidate for social No or vocational rehab? Patient/Guardian verbally acknowledges Yes understanding of treatment program and consents to further treatment? Patient/Guardian verbally acknowledges Yes understanding of diagnosis, prognosis and goals for treatment? Eval Complexity PT Charges 35629 - Moderate Complexity Shoulder/Elbow Eval Shoulder Objective Measurements Elbow Objective Measurements PHYSICIAN CERTIFICATION: I certify the specified therapy services for Lucho Dickey are required, authorized, and reviewed every 30 days.
== END 2023-07-16 18:00 | disposition home or self-care (01) ==
LOC: PT 17:00
PROVIDERS: PCP Nurse Practitioner Family; Visit Provider Nurse Practitioner Family
DX: M79.671 Pain in right foot (principal); M72.2 Plantar fascial fibromatosis
CPT/HCPCS: 97035; 97110; 97140; 97163; 97530

== ENCOUNTER → 2023-08-25 07:15 | Outpatient (CLI) | payer BC, SELFPAY ==
--- NOTE | 2023-08-25 07:23 | MR_ITS ---
FINAL REPORT CLINICAL HISTORY: right foot pain COMPARISON: None FINDINGS: Multiplanar MR imaging of the right foot was performed without contrast. The bony structures are intact without evidence of fracture, bone bruise or marrow edema. The Achilles tendon is intact. There is minimal abnormal signal at the insertion of the plantar fascia which may be related to minimal plantar fasciitis. The musculature is intact. The plantar aponeurosis is intact. No soft tissue mass or cyst is identified. IMPRESSION: Minimal plantar fasciitis. Reviewed, Interpreted and Dictated by Josue Michele MD Transcribed by Frieda Reyes Authenticated and [facility]
== END ==
PROVIDERS: PCP Nurse Practitioner Family; Visit Provider Nurse Practitioner Family
DX: M72.2 Plantar fascial fibromatosis (principal); M79.671 Pain in right foot
CPT/HCPCS: 73718

== ENCOUNTER 2024-05-24 08:47 | Outpatient (CLI) | payer BC, SELFPAY ==
[2024-05-24 18:33] LABS: Basophils # 0.1 K/mm3 (0-0.2); Basophils % 1.1 % (0.1-2.0); Eosinophils # 0.2 K/mm3 (0.0-0.4); Hematocrit 50.8 % (42.0-52.0); Hemoglobin 16.3 g/dL (14.1-18.0); Lymphocytes % 44.3 % (10-50); Mean Corpuscular HGB Conc 32.1 g/dL (31.8-35.4); Mean Corpuscular Hemoglobin 28.1 pg (27.0-31.2); Mean Corpuscular Volume 87.6 fl (80-94); Mean Platelet Volume 9.1 fl (7.4-10.4); Monocytes # 0.7 K/mm3 (0.1-1.0); Neutrophils % 44.6 % (37.0-80.0); Platelet Count 378 K/mm3 (142-424); Red Cell Distribution Width 13.9 % (11.5-17.5)
[2024-05-24 19:07] LABS: Alanine Aminotransferase 44 U/L (12-78); Albumin Level 4.4 g/dl (3.5-5.0); Albumin/Globulin Ratio 1.5 (1.1-1.8); Alkaline Phosphatase 81 U/L (38-126); Anion Gap 12.9 mEq/L (5-15); Aspartate Amino Transferase 32 U/L (17-59); Bilirubin,Total 0.4 mg/dl (0.2-1.3); Blood Urea Nitrogen 13 mg/dl (9-20); Calcium 9.3 mg/dl (8.4-10.2); Carbon Dioxide 26 mmol/L (22.0-30.0); Chloride 106 mmol/L (98-107); Chol/HDL Ratio 3.4 (1-3.5); Cholesterol 130 mg/dl (140-200); Estimated Glomerular Filt Rate 97 ml/min (>60); GFR (African American) 117 ML/MIN (>60); Globulin 2.9 g/dL (1.3-3.2); Glucose 102 mg/dl (74-100); HDL Cholesterol 38 mg/dl (40-60); Potassium 3.9 mmoL/L (3.5-5.1); Sodium 141 mmol/L (136-145); Total Protein,Serum 7.3 g/dl (6.3-8.2); Triglycerides 134 mg/dl (30-150); VLDL Cholesterol 27 mg/dL (0-40)
[2024-05-24 19:39] LABS: Thyroid Stimulating Hormone 2.92 uIU/mL (0.465-4.68)
== END 2024-05-24 23:59 | disposition home or self-care (01) ==
LOC: LAB.DROPOF 05-25 08:48
PROVIDERS: PCP Nurse Practitioner Family; Visit Provider Nurse Practitioner Family
DX: M54.9 Dorsalgia, unspecified (principal)
CPT/HCPCS: 80050; 80053; 80061; 82306; 84443; 85025

== ENCOUNTER 2024-06-19 08:00 | Outpatient (RCR) | payer BC, SELFPAY | END 2024-06-19 23:59 | disposition home or self-care (01) | LOC: OT 08:00 | PROVIDERS: Visit Provider Nurse Practitioner Family | DX: M25.511 Pain in right shoulder (principal) | CPT/HCPCS: 97014; 97035; 97110; 97140; 97165; 97530; G0283 ==

== ENCOUNTER 2024-07-04 14:03 | Outpatient (CLI) | payer BC, SELFPAY ==
--- NOTE | 2024-07-04 14:05 | XR_ITS ---
PROCEDURE INFORMATION: Exam: XR Right Shoulder Exam date and time: 07/04/2024 2:18 PM Age: 34 years old Clinical indication: Pain; Shoulder; Right; Additional info: Right shoulder pain TECHNIQUE: Imaging protocol: Radiologic exam of the right shoulder. Views: 2 or more views. COMPARISON: No relevant prior studies available. FINDINGS: Bones/joints: There is no evidence of acute fracture.There is no evidence of malalignment or dislocation. Soft tissues: Normal. IMPRESSION: There is no evidence of acute fracture.There is no evidence of malalignment or dislocation.
== END 2024-07-04 23:59 | disposition home or self-care (01) ==
LOC: RAD 14:03
PROVIDERS: PCP Nurse Practitioner Family; Visit Provider Physician Assistant
DX: M25.511 Pain in right shoulder (principal)
CPT/HCPCS: 73030

== ENCOUNTER 2024-07-17 13:25 | Outpatient (CLI) | payer BC, SELFPAY ==
--- NOTE | 2024-07-17 13:25 | MR_ITS ---
FINAL REPORT CLINICAL HISTORY: rule out SLAP lesion. limited rom. weakness in arm FINDINGS: Multiplanar MR imaging of the right shoulder was performed without contrast. Motion artifact is noted on many of the images. The tendons of the rotator cuff are intact without evidence of rotator cuff tear. The a.c. joint is intact. A small amount of fluid is present in the subacromial/subdeltoid bursa. No labral tear is identified. The long head of the biceps tendon is intact. A small glenohumeral joint effusion is seen. There is no evidence of fracture or dislocation. The musculature is intact. There is no evidence of soft tissue mass. IMPRESSION: No evidence of rotator cuff tear or labral tear. Authenticated and [facility]
== END 2024-07-17 23:59 | disposition home or self-care (01) ==
LOC: RAD 13:25
PROVIDERS: PCP Nurse Practitioner Family; Visit Provider Physician Assistant
DX: M25.511 Pain in right shoulder (principal)
CPT/HCPCS: 73221